=== PATIENT | female | born 1940 | race Caucasian/White ===

== ENCOUNTER 2018-12-20 15:43 | Emergency (ER) | payer MEDICARE ==
[~2018-12-20] VITALS: Ht 157.5 cm; Wt 60.0 kg
[~2018-12-20 15:43] MED LIST: AUGMENTIN500TAB PO; B-12250 MCG OR; CITRACA1 OR; PRAVASTATIN10 MG PO; ROBITUSSIN AC10 ML PO; VITAMIN C500 MG OR; VITAMIN D1000 UNIT OR
[2018-12-20] MEDS ORDERED: PEPCID PO (16:24)
[2018-12-20 17:17] VITALS: BP 154/80
== END 2018-12-20 17:17 | disposition home or self-care (01) ==
LOC: ED 15:43
DX: S50.01XA Contusion of right elbow, initial encounter (principal); M25.521 Pain in right elbow; E78.00 Pure hypercholesterolemia, unspecified; Z79.899 Other long term (current) drug therapy; W01.10XA Fall on same level from slipping, tripping and stumbling with subsequent striking against unspecified object, initial encounter; Y92.009 Unspecified place in unspecified non-institutional (private) residence as the place of occurrence of the external cause